=== PATIENT | female | born 1930 | race Caucasian/White ===

== ENCOUNTER → 2016-10-31 | Outpatient (CLI) | payer MEDICARE ==
[~2016-10-31] MED LIST: "\\\"BLOOD PRESSURE MED\\\"" PO; /HCTZ25TA PO; /WARF2TA PO; /WARF3TA PO; DIOV320T PO; DIOVAN PO; LOPR50TA PO; LORTTAB2 PO; LORTTAB5 PO; METOPROLOL PO; NORCOTAB PO; SOMA350T PO; TYLE325T5 PO; ULTR50TA PO; WARFARIN PO
--- NOTE | 2016-10-31 09:41 | REP ---
RIGHT UPPER QUADRANT ULTRASOUND: Real-time sonographic evaluation of the right upper quadrant performed. The study is limited due to patient body habitus and bowel gas. There is a mobile gallstone in the gallbladder measuring 3 cm in diameter. There is no gallbladder wall thickening. There is no pericholecystic fluid. The gallbladder is moderately distended. There is no intrahepatic or extrahepatic biliary dilatation, common bile duct measuring 6 mm in diameter. In the right lobe of the liver inferiorly is a calcification as seen on CT scan, measuring 3.4 x 2.2 x 3.0 cm. Pancreas is not well seen but there is no gross abnormality identified. Right kidney demonstrates no hydronephrosis with normal size at 13.5 cm in length. There are vascular calcifications. IMPRESSION: 3 cm mobile gallstone in the gallbladder without gallbladder wall thickening, pericholecystic fluid or biliary dilatation. Signed by Remy Briseno MD 10/31/2016 07:39 P
== END ==
LOC: M RAD 08:25
PROVIDERS: ATTEND Nurse Practitioner Family
DX: K80.20 Calculus of gallbladder without cholecystitis without obstruction (principal)

== ENCOUNTER → 2016-11-06 | Outpatient (REF) | payer MEDICARE | LOC: M LAB REF 13:14 | PROVIDERS: ATTEND Internal Medicine Medical Oncology | DX: C50.919 Malignant neoplasm of unspecified site of unspecified female breast (principal) ==

== ENCOUNTER → 2016-12-04 | Outpatient (REF) | payer MEDICARE | LOC: M LAB REF 12:25 | PROVIDERS: ATTEND Internal Medicine Medical Oncology | DX: C50.919 Malignant neoplasm of unspecified site of unspecified female breast (principal) ==

== ENCOUNTER → 2017-01-01 | Outpatient (REF) | payer MEDICARE | LOC: M LAB REF 12:42 | PROVIDERS: ATTEND Internal Medicine Medical Oncology | DX: C50.919 Malignant neoplasm of unspecified site of unspecified female breast (principal) ==

== ENCOUNTER → 2017-01-29 | Outpatient (REF) | payer MEDICARE | LOC: M LAB REF 12:51 | PROVIDERS: ATTEND Internal Medicine Medical Oncology | DX: C50.919 Malignant neoplasm of unspecified site of unspecified female breast (principal) ==

== ENCOUNTER → 2017-01-31 | Outpatient (CLI) | payer MEDICARE ==
--- NOTE | 2017-01-31 15:05 | REP ---
UNILATERAL MAMMOGRAM RIGHT BREAST: HISTORY: Left breast cancer and mastectomy. Mammogram right breast performed in the MLO and CC projections and compared to multiple prior exams most recent of which is 08/15/2015. There is no new mass or clustered microcalcifications. Vascular calcifications are present. There is no change since the prior exam. IMPRESSION: ACR 1 negative mammogram right breast in this patient status post left mastectomy. Suggest followup mammogram in 1 year. This mammogram was interpreted with the aid of an FDA-approved computer-aided detection system. The patient states she/he had a clinical breast exam in 01/2017. The patient letter being requested is M1. Signed by Remy Briseno MD 02/01/2017 05:14 P
== END ==
LOC: M RAD 11:27
PROVIDERS: ATTEND Nurse Practitioner Family
DX: Z12.31 Encounter for screening mammogram for malignant neoplasm of breast (principal); Z85.3 Personal history of malignant neoplasm of breast

== ENCOUNTER → 2017-02-01 | Outpatient (CLI) | payer MEDICARE ==
--- NOTE | 2017-02-02 07:13 | REP ---
ULTRASOUND THYROID, SOFT TISSUE NECK: HISTORY: Palpable thyroid mass. COMPARISON: None. The right lobe of the thyroid gland measures 8 x 3.9 x 3.8 cm and the left lobe measures 8.6 x 4.1 x 3.3 cm. The isthmus measures 7 mm. In the right lobe of the thyroid gland there is a dominant mass which measures 3 x 2.4 x 2.6 cm and is solid. In the left lobe there are three nodules, which are solid and partially calcified. The largest measures 1.1 x 2.1 x 2.1 cm and all three are in the mid polar region. IMPRESSION: Gross thyromegaly and abnormal nodules as described above with a dominant mass on the right. Followup with radioiodide 123 thyroid scintigraphy is suggested. Signed by Jose Johnson DO 02/02/2017 09:20 A
== END ==
LOC: M RAD 10:26
PROVIDERS: ATTEND Internal Medicine Medical Oncology
DX: E01.0 Iodine-deficiency related diffuse (endemic) goiter (principal)

== ENCOUNTER → 2017-02-05 | Outpatient (REF) | payer MEDICARE ==
[2017-02-05 12:42] LABS: ALBUMIN 3.3 GM/DL (3.2-5.2); ALKALINE PHOSPHATASE 47 U/L (45-117); ALT/SGPT 20 U/L (12-78); ANION GAP 8 MEQ/L (8-16); AST/SGOT 13 U/L (15-37); BILIRUBIN,TOTAL 0.3 MG/DL (0.2-1.0); BLOOD UREA NITROGEN 22 MG/DL (7-18); CALCIUM LEVEL 8.6 MG/DL (8.8-10.2); CARBON DIOXIDE LEVEL 30 MEQ/L (21-32); CHLORIDE LEVEL 105 MEQ/L (98-107); CREATININE FOR GFR 0.91 MG/DL (0.55-1.02); GLOMERULAR FILTRATION RATE > 60.0 (>32); GLUCOSE, FASTING 119 MG/DL (83-110); POTASSIUM SERUM 3.7 MEQ/L (3.5-5.1); SODIUM LEVEL 143 MEQ/L (136-145); TOTAL PROTEIN 6.3 GM/DL (6.4-8.2)
== END ==
LOC: M LABDRAW1 11:50
PROVIDERS: ATTEND Family Medicine
DX: M25.572 Pain in left ankle and joints of left foot (principal); Z79.01 Long term (current) use of anticoagulants

== ENCOUNTER → 2017-02-26 | Outpatient (CLI) | payer MEDICARE ==
--- NOTE | 2017-02-27 16:21 | REP ---
THYROID UPTAKE AND SCAN: HISTORY: Thyromegaly and nodules. COMPARISON: None. After the oral administration of 321.0 mCi of radioiodide 123, a thyroid scan and uptake was performed. There is a patchy uptake pattern seen throughout both lobes of the thyroid gland with a warm nodule seen in the right lower lobe. The 24 hour uptake is 13.3% which is abnormally low. IMPRESSION: Autonomously functioning right thyroid nodule resulting in hypothyroidism as described above. Signed by Jose Johnson DO 02/27/2017 04:27 P
== END ==
LOC: M RAD 13:11
PROVIDERS: ATTEND Nurse Practitioner Family
DX: E04.1 Nontoxic single thyroid nodule (principal); C50.919 Malignant neoplasm of unspecified site of unspecified female breast
CPT/HCPCS: 78012; 84439; 84443; 84480; 86300; A9516

== ENCOUNTER → 2017-02-26 | Outpatient (REF) | payer MEDICARE ==
[2017-02-26 13:27] LABS: FREE T4 1.02 NG/DL (0.76-1.46)
== END ==
LOC: M LAB REF 12:17
PROVIDERS: ATTEND Internal Medicine Medical Oncology
DX: C50.919 Malignant neoplasm of unspecified site of unspecified female breast (principal)

== ENCOUNTER → 2017-03-26 | Outpatient (REF) | payer MEDICARE | LOC: M LAB REF 13:19 | PROVIDERS: ATTEND Internal Medicine Medical Oncology | DX: C50.012 Malignant neoplasm of nipple and areola, left female breast (principal) ==

== ENCOUNTER → 2017-04-23 | Outpatient (REF) | payer MEDICARE | LOC: M LAB REF 13:49 | PROVIDERS: ATTEND Internal Medicine Medical Oncology | DX: C50.919 Malignant neoplasm of unspecified site of unspecified female breast (principal) ==

== ENCOUNTER → 2017-05-03 | Outpatient (CLI) | payer MEDICARE ==
[~2017-05-03] MED LIST changes: +ISOVUE-370 76% 100ML VIAL (Q9967) As Ordered ONE
--- NOTE | 2017-05-03 14:48 | REP ---
CT NECK WITH CONTRAST: HISTORY: Adenopathy. CONTRAST: Isovue-370, 75 mL. COMPARISON: 07/21/2009 A BB was placed on the left side of the neck at the C3 level. The naso-, jodie-, and hypopharynx, larynx, and subglottic trachea are normal in appearance. The salivary glands are normal in size and density. The thyroid gland is enlarged. The thyroid gland contains multiple noncalcified and calcified nodules. This is consistent with goiter that is unchanged compared to the previous study. Small lymph nodes less than 1 cm in size are present in the internal jugular chains, posterior triangles, submandibular, and submental areas. Atherosclerotic calcification is present at the carotid bifurcations. Degenerative change is present in the cervical spine. The lung apices are clear. The visualized sinuses are clear. IMPRESSION: There is enlargement of the thyroid gland. The thyroid gland contains multiple noncalcified and calcified nodules. These findings are consistent with goiter, that are unchanged compared to the previous study. Signed by Moises Menezes MD 05/03/2017 02:53 P
== END ==
LOC: M RAD 13:50
PROVIDERS: ATTEND Internal Medicine Medical Oncology
DX: R59.0 Localized enlarged lymph nodes (principal); Z85.3 Personal history of malignant neoplasm of breast; E04.9 Nontoxic goiter, unspecified
CPT/HCPCS: 70491; Q9967

== ENCOUNTER → 2017-05-21 | Outpatient (REF) | payer MEDICARE ==
[~2017-05-21] MED LIST changes: -ISOVUE-370 76% 100ML VIAL (Q9967) As Ordered ONE
== END ==
LOC: M LAB REF 14:05
PROVIDERS: ATTEND Internal Medicine Medical Oncology
DX: C50.919 Malignant neoplasm of unspecified site of unspecified female breast (principal)

== ENCOUNTER → 2017-06-18 | Outpatient (REF) | payer MEDICARE | LOC: M LAB REF 13:56 | PROVIDERS: ATTEND Internal Medicine Medical Oncology | DX: C50.919 Malignant neoplasm of unspecified site of unspecified female breast (principal) ==

== ENCOUNTER → 2017-07-16 | Outpatient (REF) | payer MEDICARE | LOC: M LAB REF 13:27 | PROVIDERS: ATTEND Internal Medicine Medical Oncology | DX: C50.919 Malignant neoplasm of unspecified site of unspecified female breast (principal) ==

== ENCOUNTER → 2017-08-12 | Outpatient (REF) | payer MEDICARE | LOC: M LAB REF 13:11 | PROVIDERS: ATTEND Internal Medicine Medical Oncology | DX: C50.919 Malignant neoplasm of unspecified site of unspecified female breast (principal) ==

== ENCOUNTER → 2017-09-19 | Outpatient (REF) | payer MEDICARE | LOC: M LAB REF 16:28 | PROVIDERS: ATTEND Internal Medicine Medical Oncology | DX: C50.919 Malignant neoplasm of unspecified site of unspecified female breast (principal) ==

== ENCOUNTER → 2017-09-24 | Outpatient (REF) | payer MEDICARE ==
[2017-09-24 13:50] LABS: CALCIUM OXALATE CRYSTALS SMALL
== END ==
LOC: M LAB REF 13:03
PROVIDERS: ATTEND Internal Medicine Medical Oncology
DX: C50.919 Malignant neoplasm of unspecified site of unspecified female breast (principal); Z79.899 Other long term (current) drug therapy

== ENCOUNTER → 2017-11-19 | Outpatient (REF) | payer MEDICARE ==
[2017-11-21 00:06] LABS: CA 27.29 40.6 U/mL (0.0-38.6)
== END ==
LOC: M LAB REF 13:35
DX: C50.919 Malignant neoplasm of unspecified site of unspecified female breast (principal)
CPT/HCPCS: 86300

== ENCOUNTER → 2017-11-25 | Outpatient (CLI) | payer MEDICARE ==
[~2017-11-25] MED LIST changes: -"\\\"BLOOD PRESSURE MED\\\"" PO; -/HCTZ25TA PO; -/WARF2TA PO; -/WARF3TA PO; -DIOV320T PO; -DIOVAN PO; +ISOVUE-370 76% 100ML VIAL (Q9967) As Ordered; -LOPR50TA PO; -LORTTAB2 PO; -LORTTAB5 PO; -METOPROLOL PO; -NORCOTAB PO; -SOMA350T PO; -TYLE325T5 PO; -ULTR50TA PO; -WARFARIN PO
== END ==
LOC: M RAD 09:45
DX: C50.919 Malignant neoplasm of unspecified site of unspecified female breast (principal); N64.4 Mastodynia; E04.9 Nontoxic goiter, unspecified; Z90.12 Acquired absence of left breast and nipple
CPT/HCPCS: Q9967

== ENCOUNTER → 2017-12-17 | Outpatient (REF) | payer MEDICARE ==
[2017-12-19 00:06] LABS: CA 27.29 29.7 U/mL (0.0-38.6)
== END ==
LOC: M LAB REF 13:24
DX: C50.919 Malignant neoplasm of unspecified site of unspecified female breast (principal)
CPT/HCPCS: 86300

== ENCOUNTER → 2018-01-15 | Outpatient (REF) | payer MEDICARE ==
[2018-01-15 13:39] LABS: APPEARANCE, URINE CLEAR (CLEAR); BACTERIA, URINE AUTO NEGATIVE (NEGATIVE); BILIRUBIN, URINE AUTO NEGATIVE (NEGATIVE); BLOOD, URINE BLOOD NEGATIVE (NEGATIVE); COLOR, URINE YELLOW (YELLOW); GLUCOSE, URINE (UA) AUTO NEGATIVE (NEGATIVE); KETONE, URINE AUTO NEGATIVE (NEGATIVE); LEUKOCYTE ESTERASE, URINE AUTO 3+ (NEGATIVE); NITRITE, URINE AUTO NEGATIVE (NEGATIVE); PROTEIN, URINE AUTO NEGATIVE (NEGATIVE); RBC, URINE AUTO 5 /HPF (0-3); SPECIFIC GRAVITY URINE AUTO 1.013 (1.002-1.035); SQUAMOUS EPITHELIAL CELL UR AU 1 /HPF (0-6); WBC, URINE AUTO 6 /HPF (0-3)
[2018-01-17 00:06] LABS: CA 27.29 30.2 U/mL (0.0-38.6)
== END ==
LOC: M LAB REF 13:06
DX: C50.919 Malignant neoplasm of unspecified site of unspecified female breast (principal)
CPT/HCPCS: 86300

== ENCOUNTER → 2018-02-11 | Outpatient (REF) | payer MEDICARE ==
[2018-02-13 00:08] LABS: CA 27.29 32.9 U/mL (0.0-38.6)
== END ==
LOC: M LAB REF 13:22
DX: C50.912 Malignant neoplasm of unspecified site of left female breast (principal); Z17.0 Estrogen receptor positive status [ER+]; Z90.12 Acquired absence of left breast and nipple
CPT/HCPCS: 86300

== ENCOUNTER → 2018-03-04 | Outpatient (REF) | payer MEDICARE | LOC: M LAB REF 18:03 | DX: D04.21 Carcinoma in situ of skin of right ear and external auricular canal (principal) | CPT/HCPCS: 88305 ==

== ENCOUNTER → 2018-04-09 | Outpatient (REF) | payer MEDICARE ==
[2018-04-09 14:28] LABS: FREE T4 1.06 NG/DL (0.76-1.46); THYROID STIMULATING HORMONE 0.039 uIU/ML (0.358-3.740)
[2018-04-11 00:12] LABS: CA 27.29 37.1 U/mL (0.0-38.6)
== END ==
LOC: M LAB REF 13:42
DX: C50.912 Malignant neoplasm of unspecified site of left female breast (principal); Z17.0 Estrogen receptor positive status [ER+]; Z90.12 Acquired absence of left breast and nipple
CPT/HCPCS: 84443

== ENCOUNTER → 2018-04-24 | Outpatient (CLI) | payer MEDICARE | LOC: M RAD 10:42 | DX: H92.01 Otalgia, right ear (principal) | CPT/HCPCS: 76536 ==

== ENCOUNTER → 2018-05-06 | Outpatient (REF) | payer MEDICARE ==
[2018-05-07 08:06] LABS: CA 27.29 36.2 U/mL (0.0-38.6)
== END ==
LOC: M LAB REF 13:18
DX: C50.912 Malignant neoplasm of unspecified site of left female breast (principal); Z17.0 Estrogen receptor positive status [ER+]; Z90.12 Acquired absence of left breast and nipple
CPT/HCPCS: 86300

== ENCOUNTER → 2018-07-21 | Outpatient (CLI) | payer MEDICARE | LOC: M RAD 13:00 | DX: C50.912 Malignant neoplasm of unspecified site of left female breast (principal); K44.9 Diaphragmatic hernia without obstruction or gangrene; Z90.12 Acquired absence of left breast and nipple; E04.2 Nontoxic multinodular goiter; J98.4 Other disorders of lung | CPT/HCPCS: Q9967 ==

== ENCOUNTER → 2019-03-17 | Outpatient (REF) | payer MEDICARE ==
[~2019-03-17] MED LIST changes: +"\\\"BLOOD PRESSURE MED\\\"" PO; +COUM1TAB16 PO; +COUM1TAB19 PO; +DIOV320T PO; +DIOVAN PO; +FLUC150T PO; +GABA-1171 PO; +HYDR-3644 PO; +HYDR25TAB PO; +IBRA100C PO; -ISOVUE-370 76% 100ML VIAL (Q9967) As Ordered; +LOPR1TAB7 PO; +LOPR50TA PO; +LORTTAB2 PO; +LORTTAB5 PO; +LOSA25TA14 PO; +METOPROLOL PO; +NEUR100C PO; +NORCOTAB PO; +NYST1POW9 TOP; +SOMA350T PO; +TYLE325T5 PO; +ULTR50TA PO; +WARF4TAB52 PO; +WARFARIN PO
[2019-03-17 15:15] LABS: INR 1.76; PROTHROMBIN TIME 20.8 SECONDS (12.1-14.4)
== END ==
LOC: M LAB REF 14:44
PROVIDERS: ATTEND Family Medicine
DX: C50.912 Malignant neoplasm of unspecified site of left female breast (principal); Z79.01 Long term (current) use of anticoagulants; Z79.899 Other long term (current) drug therapy
CPT/HCPCS: 36415; 80053; 85027; 85610; 86300; 96401; J9395

== ENCOUNTER → 2019-05-12 | Outpatient (REF) | payer MEDICARE ==
[2019-05-12 11:06] LABS: INR 1.96; PROTHROMBIN TIME 22.1 SECONDS (11.8-14.0)
== END ==
LOC: M LAB REF 09:34
PROVIDERS: ATTEND Family Medicine
DX: Z79.01 Long term (current) use of anticoagulants (principal)

== ENCOUNTER → 2019-07-21 | Outpatient (REF) | payer MEDICARE ==
[2019-07-21 14:29] LABS: INR 1.44; PROTHROMBIN TIME 17.3 SECONDS (11.8-14.0)
== END ==
LOC: M LAB REF 14:05
PROVIDERS: ATTEND Family Medicine
DX: Z79.01 Long term (current) use of anticoagulants (principal)

== ENCOUNTER → 2019-08-18 | Outpatient (REF) | payer MEDICARE ==
[2019-08-18 16:18] LABS: INR 1.83; PROTHROMBIN TIME 20.9 SECONDS (11.8-14.0)
== END ==
LOC: M LAB REF 15:02
PROVIDERS: ATTEND Family Medicine
DX: Z51.81 Encounter for therapeutic drug level monitoring (principal); Z79.01 Long term (current) use of anticoagulants

== ENCOUNTER → 2019-09-15 | Outpatient (REF) | payer MEDICARE ==
[~2019-09-15] MED LIST changes: +FLUC10TA PO
[2019-09-15 14:30] LABS: INR 2.48; PROTHROMBIN TIME 26.7 SECONDS (11.8-14.0)
== END ==
LOC: M LAB REF 13:55
PROVIDERS: ATTEND Family Medicine
DX: Z79.01 Long term (current) use of anticoagulants (principal)

== ENCOUNTER → 2019-09-25 | Outpatient (CLI) | payer MEDICARE ==
[~2019-09-25] MED LIST changes: +GASTROGRAFIN SOLUTION 30ML (Q9963) As Ordered ONE; +ISOVUE-370 76% 100ML VIAL (Q9967) As Ordered ONE
--- NOTE | 2019-09-25 12:10 | REP ---
Clinical: History of breast cancer. Restaging. Technique: Axial contrast enhanced images from the thoracic inlet to the upper abdomen with coronal and sagittal re-formations using 100 ml Isovue 370 intravenous contrast material. Comparison: 07/21/2018. Findings: Bilateral lung mayer demonstrate chronic stable scattered age-related interstitial changes and minimal bibasilar fibrotic changes with mild chronic bronchiectasis. No acute pulmonary parenchymal consolidation, nodule or mass lesion. No pleural effusion. No pneumothorax. Tracheobronchial tree is patent. Atherosclerotic changes to the thoracic aorta and coronary arteries again noted. No evidence for aortic aneurysm or dissection. No pericardial effusion. No obvious adenopathy. Heterogeneous multinodular goiter is again noted. Musculoskeletal structures demonstrate age-related degenerative changes without focal aggressive abnormality noted. Impression: Chronic stable changes. No acute mediastinal or pleuroparenchymal process. No evidence for metastatic disease. Multinodular thyroid goiter. Electronically Signed by Norman Siddiqui MD 09/25/2019 12:02 P
--- NOTE | 2019-09-25 12:51 | REP ---
Clinical: Breast cancer. Restaging. Technique: Axial contrast enhanced images from the lung bases to the pubic symphysis using oral (per protocol) and 100 ml Isovue 370 intravenous contrast material coronal and sagittal re-formations. Delayed images of the abdomen obtained. Comparison: 09/21/2016. Findings: Liver demonstrates fatty infiltration and chronic partially calcified cyst within the right lobe unchanged from prior examination. No focal acute hepatic lesion identified. Cholelithiasis noted. Spleen, pancreas, bilateral adrenal glands and kidneys are normal / stable. The enteric system is without obstruction or acute inflammatory process. Diverticulosis noted without acute diverticulitis. Pelvis demonstrates stable left bladder diverticulum and evidence for prior hysterectomy. Atherosclerotic changes of the aorta and vasculature noted without aneurysm. IVC filter identified with the arms extending beyond the border of the vena cava. No ascites. No free air. No obvious adenopathy. Musculoskeletal structures demonstrate degenerative changes without focal aggressive abnormality noted. Impression: 1. No evidence for metastatic disease or acute abdominopelvic pathology. 2. Cholelithiasis. 3. Diverticulosis. 4. Stable left bladder diverticulum. 5. Further chronic stable changes as above. Electronically Signed by Norman Siddiqui MD 09/25/2019 12:43 P
--- NOTE | 2019-09-25 15:15 | REP ---
WHOLE BODY BONE SCAN: Following the intravenous administration of 22 mCi of technetium 99m MDP, the patient's whole body is imaged in the anterior and posterior projections. Additional oblique and lateral views are obtained. Mild diffuse arthritic uptake is seen in the spine. There also appears to be mild arthritic uptake in the left wrist and bilateral feet. There is no compelling scintigraphic evidence of osseous metastases. Renal and bladder activity are seen. There is a large bladder diverticulum on the left. IMPRESSION: No compelling scintigraphic evidence of osseous metastases. Electronically Signed by Remy Briseno MD 09/25/2019 05:17 P
== END ==
LOC: M RAD 09:36
PROVIDERS: ATTEND Internal Medicine Medical Oncology
DX: C50.919 Malignant neoplasm of unspecified site of unspecified female breast (principal)
CPT/HCPCS: 71260; 74177; 78306; A9503; Q9963; Q9967

== ENCOUNTER → 2019-11-03 | Outpatient (CLI) | payer MEDICARE ==
[~2019-11-03] MED LIST changes: -GASTROGRAFIN SOLUTION 30ML (Q9963) As Ordered ONE; -ISOVUE-370 76% 100ML VIAL (Q9967) As Ordered ONE
--- NOTE | 2019-11-04 07:13 | RADONC ---
RADIATION ONCOLOGY CONSULTATION NOTE DATE: 11/03/2019 CHART #: [id number] DIAGNOSIS: Left breast cancer. STAGE: Recurrent. ECOG PERFORMANCE STATUS: 1. CONSULTATION NOTE: Ms. 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 HISTORY OF PRESENT ILLNESS: The patient's history dates back to October 29, 1995 when she underwent routine mammogram which showed two dominant densities in the left breast. Lumpectomy was undertaken and pathology revealed an infiltrating ductal carcinoma measuring 1.2 cm in her left breast. The tumor was estrogen receptor and progesterone receptor positive. The patient was seen in this department and received radiation therapy to that breast for a dose of 5040 centigray delivered in 28 fractions of 180 cGy each from 01/15/1996 through 02/25/1996. The primary site area was then boosted for an additional 1000 cGy delivered in five fractions of 200 cGy each from 02/26/1996 through 03/04/1996 utilizing tangential mayer and a 6 MV photon beam. This brought the primary site to a total dose of 6040 cGy. The patient initially did quite well, but apparently developed a left chest wall recurrence in 2013. On 10/09/2013, the patient underwent a left mastectomy. Pathology revealed a poorly differentiated infiltrating ductal carcinoma involving the entire breast. It represented all tissue sections. Deep margins of resection were positive with tumor invading the chest wall muscle. Extensive lymph vascular invasion was noted, some near the soft tissue margins. The tumor extended up to the epidermis of the entire skin and many were in the lymphatic channels. The patient has since been treated with endocrine therapy consisting of Faslodex/palbociclib. More recently, the patients CA 27.[address] has begun to rise[address] scans of the chest, abdomen and pelvis were done on 09/25/2019 which showed no evidence of metastatic disease anywhere. In addition, a bone scan that was done on 09/25/2019 also showed no evidence of bony metastatic disease. The patient is now being referred to me for discussion of possible chest wall reirradiation in an attempt to obtain local control. The patient does report some pain upon swallowing which appears to be unrelated to the actual skin nodules. In addition, she has some tenderness in the axillary region and the mid axillary line, which again are far away from her skin nodules. There is some muscle tenderness along the latissimus dorsi muscle as well. PAST MEDICAL HISTORY: The patient's past medical history is positive for hypertension, thyroid problems, arthritis, DVTs and cataracts. She reports that she has had an appendectomy in 1959. She had a hysterectomy in 1963. She underwent back surgery in 1993 and again in 1995. ALLERGIES: The patient is allergic to CODEINE and LATEX. SOCIAL HISTORY: The patient does not smoke cigarettes nor abuse alcohol. FAMILY HISTORY: The patient's family history is negative for breast cancer or other malignancies. REVIEW OF SYSTEMS: The patient's review of systems is positive for some weakness in her arms and legs, some decreased energy, hearing loss and physical limitations secondary to old age. She denies nausea, vomiting, fevers, chills, night sweats, diplopia, headaches, anxiety or depression, anorexia, weight loss, visual disturbances, urinary or bowel difficulties, or bone pain. Once again, she does complain of some chest pain when swallowing cold or hot liquids. PHYSICAL EXAMINATION: The patient is an elderly white female in no acute distress. HEENT exam is normocephalic, atraumatic. Extraocular movements are intact. There is no palpable cervical, supraclavicular, infraclavicular or axillary lymphadenopathy present. Lungs are clear to auscultation and percussion. Heart has a regular rate and rhythm. Examination of the patient's right chest reveals no masses or discharge. Her left chest wall shows several cutaneous elevated nodules present, mostly medially and anteriorly. There is a large rectangular region present with radiation telangiectasia in the high dose region of the skin. There are also some nodules on the other side of that area of telangiectasia. There is acute tenderness to the musculature on the far distal and more posterior side away from the nodules. There is no tenderness to the nodular area itself. There is no opening or oozing. The patient's abdomen is benign with no hepatosplenomegaly, masses or tenderness. The remainder of her physical exam is unremarkable. ASSESSMENT: I had a very, very lengthy discussion with this patient and her family. I have photographed the nodules with a ruler over the chest wall and will continue to monitor these. At the present time, the patient is having no apparent symptoms or problems with these nodules. The family cannot say if they have been growing or not. The patient does not know if these have grown or not either. I do not know the full history of these and indeed they appear to have been controlled for quite some time. The mastectomy was done more than 6 years ago in September 2013 and indeed we are now dealing with several small nodules which are asymptomatic and each less than a centimeter in size. In addition, clearly, the patient has had a significant amount of radiation to the skin and the chest wall. There are clear visible significant changes of telangiectasia and fibrosis present over the skin of the treated field. Unfortunately, the high dose area of skin radiation is right in between the two different sets of nodules and would have to be incorporated in our radiation mayer to treat this. I explained to the patient that her initial treatment was delivered, but any further radiation would be passing skin tolerance levels. In order to control these nodules, she would need at least 5000 cGy if not higher. Considering her advanced age and the slow history of this disease at this time, I do not think there is a higuera to jump in and treat these. I did explain to this patient that I am more than willing to treat this if it becomes urgent to do so. The patient is aware that if these lesions become painful or begin to erode the skin causing difficulties with wounds and drainage, then of course radiation should be reconsidered. Significant radiation osteonecrosis and skin necrosis as well as muscle necrosis probably should not hit until several months to several years after we irradiate the region. Therefore, if she is going to be in acute difficulties, once again, I would consider treating it. At the present time, however, I do not think we are in this situation. I have therefore recommended and set up a routine regular schedule of follow ups with us. Once again, as mentioned above, I have taken photographs with a ruler across the area of these lesions. I have explained to the patient and her family what we are looking for and have instructed them to call me if I could be of any assistance or anything changes in the meantime. They have been given my cell phone number as well as office number to call if they think these lesions are progressing or beginning to cause her any problems. I have set her up for routine followup of these nodules every 2-3 months and we will continue to photograph and measure them. Indeed, she is turning 89 next week and the longer we could provide her with quality existence without causing her too many problems the better. Indeed, if she can be maintained without difficulty over the next couple of the years before we treat this it will get her into her 90s without suffering. Once again, in summary, I have scheduled the patient for routine followup visits and monitoring in our office. She and her family have been instructed to contact me if anything should change. We will continue to measure these lesions. I have recommended that she continue with her endocrine therapy which has done her well for the past 6 years and 1 month. cc: MD Marie Mclean MD Robert Kimball, MD
== END ==
LOC: M ONCR 09:56
PROVIDERS: ATTEND Radiology Radiation Oncology
DX: C50.912 Malignant neoplasm of unspecified site of left female breast (principal)

== ENCOUNTER → 2019-11-10 | Outpatient (REF) | payer MEDICARE ==
[~2019-11-10] MED LIST changes: +AFIN10TA PO; +LETR2.5T2 PO
[2019-11-10 11:06] LABS: INR 3.75; PROTHROMBIN TIME 37.1 SECONDS (11.8-14.0)
== END ==
LOC: M LAB REF 10:14
PROVIDERS: ATTEND Family Medicine
DX: Z79.01 Long term (current) use of anticoagulants (principal)

== ENCOUNTER → 2019-12-23 | Outpatient (REF) | payer MEDICARE ==
[2019-12-23 13:47] LABS: INR 3.64; PROTHROMBIN TIME 36.3 SECONDS (11.8-14.0)
[2019-12-23 14:06] LABS: FREE T3 3.8 PG/ML (2.2-4.0); FREE T4 1.55 NG/DL (0.76-1.46); THYROID STIMULATING HORMONE 0.008 uIU/ML (0.358-3.740)
== END ==
LOC: M LAB REF 13:11
PROVIDERS: ATTEND Family Medicine
DX: E07.9 Disorder of thyroid, unspecified (principal); Z79.01 Long term (current) use of anticoagulants

== ENCOUNTER → 2019-12-28 | Outpatient (CLI) | payer MEDICARE ==
--- NOTE | 2019-12-28 13:31 | REP ---
Left lower extremity Duplex Doppler venous ultrasound: Real time compression and duplex Doppler interrogation of the left lower extremity deep venous system is performed. The left common femoral, superficial femoral and popliteal veins are fully compressible with transducer pressure and demonstrate normal spontaneous and phasic flow, without evidence of deep venous thrombosis. A Calderon's cyst in the medial popliteal fossa measures 7.0 x 1.4 x 2.2 cm. Impression: No evidence of deep venous thrombosis of the left lower extremity femoral popliteal venous system. Electronically Signed by Remy Briseno MD 12/28/2019 01:23 P
--- NOTE | 2019-12-28 14:23 | REP ---
REASON: Atraumatic pain. The bones are markedly demineralized. Degenerative changes seen involving the ankle and knee. There is no evidence of an acute fracture. IMPRESSION: Chronic changes. Electronically Signed by oJse Johnson DO 12/28/2019 04:10 P
== END ==
LOC: M RAD 12:38
PROVIDERS: ATTEND Internal Medicine Medical Oncology
DX: M71.22 Synovial cyst of popliteal space [Baker], left knee (principal); M79.662 Pain in left lower leg; C50.919 Malignant neoplasm of unspecified site of unspecified female breast

== ENCOUNTER → 2020-01-21 | Outpatient (CLI) | payer MEDICARE ==
[2020-01-21 16:18] LABS: BASO # 0.1 10^3/uL (0.0-0.2); BASO % 1.3 % (0.0-1.0); EOS # 0.1 10^3/uL (0.0-0.5); EOS % 2.7 % (0.0-3.0); HEMATOCRIT 30.8 % (36.0-47.0); HEMOGLOBIN 9.8 g/dl (12.0-15.5); LYMPH # 1.2 10^3/uL (1.5-5.0); LYMPH % 31.1 % (24.0-44.0); MEAN CORPUSCULAR HEMOGLOBIN 30.8 pg (27.0-33.0); MEAN CORPUSCULAR HGB CONC 31.8 g/dl (32.0-36.5); MEAN CORPUSCULAR VOLUME 96.9 fl (80.0-96.0); MONO # 0.6 10^3/uL (0.0-0.8); MONO % 14.7 % (0.0-5.0); NEUTROPHILS # 1.9 10^3/uL (1.5-8.5); NEUTROPHILS % 49.9 % (36.0-66.0); PLATELET COUNT, AUTOMATED 159 10^3/uL (150-450); RED BLOOD COUNT 3.18 10^6/uL (4.00-5.40); WHITE BLOOD COUNT 3.7 10^3/uL (4.0-10.0)
[2020-01-21 16:42] LABS: ALBUMIN 3.1 GM/DL (3.2-5.2); ALT/SGPT 20 U/L (12-78); BILIRUBIN,TOTAL 0.3 MG/DL (0.2-1.0); BLOOD UREA NITROGEN 28 MG/DL (7-18); CALCIUM LEVEL 8.5 MG/DL (8.8-10.2); CARBON DIOXIDE LEVEL 27 MEQ/L (21-32); CHLORIDE LEVEL 107 MEQ/L (98-107); CREATININE FOR GFR 0.88 MG/DL (0.55-1.30); GLOMERULAR FILTRATION RATE > 60.0 (>32); GLUCOSE, FASTING 118 MG/DL (70-100); POTASSIUM SERUM 3.5 MEQ/L (3.5-5.1); SODIUM LEVEL 141 MEQ/L (136-145); TOTAL PROTEIN 6.7 GM/DL (6.4-8.2)
== END ==
LOC: M LAB 14:14
PROVIDERS: ATTEND Internal Medicine Medical Oncology
DX: C50.912 Malignant neoplasm of unspecified site of left female breast (principal)

== ENCOUNTER → 2020-01-21 | Outpatient (CLI) | payer MEDICARE ==
[2020-01-21 16:28] LABS: INR 2.35; PROTHROMBIN TIME 25.6 SECONDS (11.8-14.0)
== END ==
LOC: M LAB 14:19
PROVIDERS: ATTEND Family Medicine
DX: Z51.81 Encounter for therapeutic drug level monitoring (principal); Z79.01 Long term (current) use of anticoagulants

== ENCOUNTER → 2020-02-03 | Outpatient (CLI) | payer MEDICARE ==
--- NOTE | 2020-02-06 15:22 | RADONC ---
RADIATION ONCOLOGY FOLLOWUP NOTE DATE: 02/03/2020 This is a telemedicine visit. The patient was informed of the risks including security breech, technological failure, inability to perform a comprehensive physical exam which could delay or prevent an accurate diagnosis, and potential complications from treatment decisions rendered over a telemedicine platform. The patient understands and consented to the use of telehealth services phone only. CHART NUMBER: [id number] DIAGNOSIS: Left breast cancer. STAGE: Recurrent. ECOG PERFORMANCE STATUS: 1 FOLLOWUP NOTE: Ms. 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 At that time, the patient was just being started on a new line of treatment with her medical oncologist, Dr. Marie Barroso. Indeed, her complaints have centered mostly around her legs and she is having no significant difficulties with her chest wall issue. At our initial consultation, we decided to follow this patient closely and withhold radiation until absolutely necessary. The patient has called us today reporting that her chest lesions have not worsened. Indeed, she is not complaining of any pain in that area and she reports that she sees no progress and everything seems stable to improve with regards to her chest wall. She is presently receiving everolimus and letrozole and appears to be doing well with that with regards to her chest wall. She says now and then she does have some tinges of pain of the chest wall, which are just few and far between. The patient is being seen routinely again by Dr. Barroso who is managing her care. REVIEW OF SYSTEMS: The patient's review of systems is positive for leg pain, especially the left lower extremity. Other than that she has physical limitations secondary to old age but overall her review of systems is noncontributory. She denies nausea, vomiting, fevers, chills, night sweats, diplopia, headaches anxiety or depression. She denies any progression of her chest wall nodules. Her review of systems is otherwise noncontributory. PHYSICAL EXAMINATION: Physical examination was clearly deferred as per COVID-19 precautions. This was a telephone consultation. The patient is continuing with close followup and being seen regularly by her medical oncologist, Dr. Barroso. The patient has my cell phone number and number here, and I have explained to her that I am available to her and we would see her at anytime if her lesions progress and she wants to reconsider radiation to the chest wall. I have tentatively set her up to come back to see us again in 3-4 months' time for further evaluation and followup. Hopefully at that time the COVID-19 situation will have stabilized a bit as well. In the meantime, the patient is on good hands with our medical oncologist Dr. Marie Barroso, and as mentioned above will be seen in our office in 3-4 months' time. I did explain to the patient that I will be retiring and she will seeing our her new physician Dr. Dumont. cc: MD Marie Mclean MD Robert Kimball, MD
== END ==
LOC: M ONCR 11:00
PROVIDERS: ATTEND Radiology Radiation Oncology
DX: C50.912 Malignant neoplasm of unspecified site of left female breast (principal)

== ENCOUNTER → 2020-02-29 | Outpatient (CLI) | payer MEDICARE ==
[~2020-02-29] MED LIST changes: +EVER5TAB PO
--- NOTE | 2020-02-29 23:43 | REP ---
RIGHT ANKLE, FOUR VIEWS: Four views of right ankle performed. There is no evidence of acute fracture or dislocation. Diffuse vascular calcifications are noted. There is mild inferior calcaneal spurring. There is mild to moderate narrowing of the talonavicular joint with associated mild subchondral sclerosis and dorsal navicular spurring. Ankle mortise is anatomic. There is mild soft tissue swelling. There may be a small joint effusion. Electronically Signed by Remy rBiseno MD 03/01/2020 01:44 P
== END ==
LOC: M RAD 13:58
PROVIDERS: ATTEND Family Medicine
DX: M77.31 Calcaneal spur, right foot (principal); M19.071 Primary osteoarthritis, right ankle and foot; M25.471 Effusion, right ankle; M25.571 Pain in right ankle and joints of right foot

== ENCOUNTER → 2020-03-02 | Outpatient (REF) | payer MEDICARE ==
[~2020-03-02] MED LIST changes: +TYLE650T35 PO
[2020-03-02 14:57] LABS: PROTHROMBIN TIME 48.7 SECONDS (11.8-14.0)
[2020-03-02 17:04] LABS: INR 5.26
== END ==
LOC: M LAB REF 14:05
PROVIDERS: ATTEND Family Medicine
DX: Z79.01 Long term (current) use of anticoagulants (principal)

== ENCOUNTER 2020-03-09 07:52 | Outpatient (CLI) | payer MEDICARE ==
[2020-03-09] VITALS (7 sets, daily range): BP systolic 96–130; BP diastolic 53–61
[~2020-03-09] VITALS: Ht 154.9 cm; Wt 77.8 kg
[~2020-03-09 07:52] MED LIST changes: -TYLE650T35 PO
[2020-03-09] MEDS: diphenhydrAMINE 50MG CAP PO ONE ×2 (08:15→08:26)
[2020-03-09] MEDS ORDERED: ACETAMINOPHEN TAB 650MG DOSE (2X325MG) PO ONE (08:30)
[2020-03-09] MEDS ORDERED: TYLE650T35 PO (12:29)
== END 2020-03-09 13:45 | disposition home or self-care (01) ==
LOC: M INFU 07:52
PROVIDERS: ATTEND Internal Medicine Medical Oncology
DX: D64.9 Anemia, unspecified (principal); Z88.5 Allergy status to narcotic agent; Z91.048 Other nonmedicinal substance allergy status
CPT/HCPCS: 36430; P9016

== ENCOUNTER → 2020-06-08 | Outpatient (REF) | payer MEDICARE ==
[~2020-06-08] MED LIST changes: +ACET650T61 PO
[2020-06-08 15:59] LABS: INR 1.15; PROTHROMBIN TIME 14.9 SECONDS (11.8-14.0)
[2020-06-08 16:26] LABS: FREE T4 0.99 NG/DL (0.76-1.46); THYROID STIMULATING HORMONE 0.043 uIU/ML (0.358-3.740)
== END ==
LOC: M LAB REF 15:36
PROVIDERS: ATTEND Family Medicine
DX: E07.9 Disorder of thyroid, unspecified (principal); Z79.01 Long term (current) use of anticoagulants

== ENCOUNTER → 2020-08-09 | Outpatient (CLI) | payer MEDICARE ==
--- NOTE | 2020-08-09 19:04 | REP ---
INDICATION: RESTAGING BREAST CAN C50.812. History of cutaneous chest wall recurrence 2015. Nodular air thymus lesions surrounding right transverse mastectomy scar. Rising tumor marker. COMPARISON: Comparison. CT chest abdomen pelvis September 25, 2019. TECHNIQUE: Fifty-four minutes following the intravenous injection of a 7.80 mCi dose of F-18 FDG, three-dimensional PET scintigraphy is acquired from the skull base to the proximal thighs. Triplanar noncontrast CT scanning is acquired through the same anatomic range for attenuation correction, and image registration with scan parameters optimized to minimize radiation exposure to the patient. PET scintigraphy and CT datasets were fused and displayed on a workstation with multiplanar and projection display capability. FINDINGS: The head and neck soft tissues are unremarkable except for the known goiter. No abnormal hypermetabolic uptake is seen. No abnormal uptake is seen along the left or right chest wall or in either axilla. No internal mammary hypermetabolic uptake is seen. No other mediastinal or hilar hypermetabolic kevyn uptake is seen. No pulmonary parenchymal uptake is seen. In the abdomen there is a large calcification in the posterior liver. No abnormal hypermetabolic uptake is seen within the liver or spleen. No abnormal adrenal uptake or mass is observed. A IVC filter is seen and cholelithiasis is noted incidentally. There is focal mural mass effect in the tip of the cecum and there is associated hypermetabolic uptake here with maximum standard uptake value 8.99. A malignant cecal mass lesion must be suspected. This is higher than background gastrointestinal mucosal uptake which elsewhere in the colon peaks at 5.99. A large bladder diverticulum is noted. No other abnormal hypermetabolic uptake is seen in the abdomen or pelvis. IMPRESSION: There is a small area of mural thickening and mass effect in the cecum which is associated with hypermetabolic uptake. Rule out primary colonic malignancy. Consider colonoscopy. Otherwise negative PET scintigraphy. No other abnormal hypermetabolic uptake is seen. <Electronically signed by Gary Cottrell > 08/09/20 [id number]
== END ==
LOC: M PLARAD 14:53
PROVIDERS: ATTEND Internal Medicine Medical Oncology
DX: C50.812 Malignant neoplasm of overlapping sites of left female breast (principal)
CPT/HCPCS: 78815; A9552

== ENCOUNTER → 2020-10-17 | Outpatient (REF) | payer MEDICARE ==
[~2020-10-17] MED LIST changes: +FERR325T3 PO; +FURO20TA2 PO; +HYDR-3490 PO; -HYDR25TAB PO; +POTA8CAP10 PO
[2020-10-17 15:52] LABS: INR 3.22; PROTHROMBIN TIME 33.7 SECONDS (12.5-14.3)
[2020-10-17 16:15] LABS: FREE T3 3.5 PG/ML (2.2-4.0); FREE T4 1.23 NG/DL (0.76-1.46); THYROID STIMULATING HORMONE < 0.005 uIU/ML (0.358-3.740)
== END ==
LOC: M LAB REF 14:31
PROVIDERS: ATTEND Family Medicine
DX: Z79.01 Long term (current) use of anticoagulants (principal); E07.9 Disorder of thyroid, unspecified

== ENCOUNTER → 2020-10-26 | Outpatient (CLI) | payer MEDICARE ==
[~2020-10-26] MED LIST changes: -HYDR-3490 PO; +HYDR25TAB PO
--- NOTE | 2020-10-26 13:58 | REP ---
INDICATION: LT LEG PAIN SWELLING ? DVT. COMPARISON: Comparison study December 28, 2019.. TECHNIQUE: Bilateral lower extremity duplex venous ultrasound. FINDINGS: The deep veins are anechoic and fully compressible from the groin to the popliteal fossa in the left and right lower extremity. Color flow imaging is homogeneous. Spectral Doppler interrogation demonstrates intact respiratory variation in flow and normal manual augmentation of flow. There is no evidence of deep vein thrombosis. IMPRESSION: Negative bilateral lower extremity duplex venous ultrasound. No evidence of deep vein thrombosis. <Electronically signed by Gary Cottrell > 10/26/20 [id number]
== END ==
LOC: M RAD 11:07
PROVIDERS: ATTEND Internal Medicine Medical Oncology
DX: M79.605 Pain in left leg (principal)